=== PATIENT | male | born 1960 | race Caucasian/White ===

== ENCOUNTER 2020-03-07 19:20 | Emergency (ER) | payer OTHER ==
[~2020-03-07 19:20] MED LIST: ADVAIR 500-501 EACH INH; AMLODIPINE BES2.5 MG PO; ATROVENT HFA12.9 GM INH; AUGMENTIN 875-1 EACH PO; AZELASTINE137 MCG/0. INH; AZELASTINE205.5 MCG/; CEFDINIR300 MG PO; FLUTICASONE-SA1 EAC5 INH; INCRUSE ELLI62.5 MCG INH; LOPRESSOR25 MG PO; MONTELUKAST SOD10 MG PO; MUCINEX1200 MG PO; NASONEX17 GM; NEURONTIN100 M1 PO; NORCO 5-325 TA1 EACH PO; NORVASC2.5 MG PO; ONDANSETRON HCL8 MG PO; PEPCID COMPLET1 EACH PO; PREDNISONE 10MG10 MG PO; PREDNISONE 20MG20 MG PO; PREDNISONE20 MG PO; PROAIR HFA8.5 GM INH; SINGULAIR10 MG PO; SPIRIVA 18MCG18 MCG INH; SPIRIVA18 MCG INH; TENOFOVIR DISO300 MG PO; TESSALON PERLE100 M1 PO; VENTOLIN (2.5 MG/0.5 INH; VENTOLIN (2.5 MG/3 M INH; VENTOLIN HFA IN18 GM INH; VIREAD300 MG PO; ZPAK PO
[2020-03-07 19:45] LABS: BASOPHIL 0.7 % (0-2); HCT 49.4 % (42.0-52.0); HGB 16.9 g/dl (13.2-18.0); LYMPHOCYTE 13.6 % (15-48); MCH 33.1 pg (25.0-31.0); MCHC 34.2 g/dL (32.0-36.0); MCV 96.7 fL (78.0-100.0); MONOCYTE 9.6 % (0-12); MPV 9.6 fL (6.0-9.5); NEUTROPHIL 73.3 % (41-80); NRBC 0; PLT 153 K/uL (150-400); RBC 5.11 M/uL (4.70-6.00); RDW 12.4 % (11.5-14.0); WBC 10.3 K/uL (4.0-10.5)
[2020-03-07 19:48] LABS: INR 1.15 (0.9-1.2); PTT 29.2 SECONDS (22.2-34.7)
[2020-03-07 20:02] LABS: ALBUMIN 4.2 g/dL (3.4-5.0); BILIRUBIN - TOTAL 0.6 mg/dL (0.2-1.0); BUN/CREAT RATIO (CALC) 10.8 RATIO; CREATININE 1.11 mg/dL (0.67-1.17); POTASSIUM 3.8 mmol/L (3.5-5.1); TOTAL PROTEIN 8.2 g/dL (6.4-8.2)
[2020-03-08] MEDS ORDERED: CARAFATE1 GM PO (01:27)
[2020-04-20] MEDS ORDERED: VENTOLIN (2.5 MG/3 M INH (15:37)
[2020-04-27] MEDS ORDERED: NORCO 5-325 TA1 EACH PO (11:09)
[2020-04-27] MEDS ORDERED: ONDANSETRON ODT8 MG PO (11:09)
== END 2020-03-08 01:40 | disposition home or self-care (01) ==
LOC: FER 19:20
PROVIDERS: Emergency Medicine Emergency Medical Services
DX: R07.89 Other chest pain (principal); I16.0 Hypertensive urgency; I10 Essential (primary) hypertension; I44.0 Atrioventricular block, first degree; J44.9 Chronic obstructive pulmonary disease, unspecified; Z88.1 Allergy status to other antibiotic agents; Z88.2 Allergy status to sulfonamides; Z86.19 Personal history of other infectious and parasitic diseases; Z79.899 Other long term (current) drug therapy
CPT/HCPCS: 36415; 71045; 80053; 84484; 85025; 85610; 85730; 93005

== ENCOUNTER 2020-04-01 17:27 | Emergency (ER) | payer OTHER ==
[~2020-04-01 17:27] MED LIST changes: +CARAFATE1 GM PO
[2020-04-01 20:17] LABS: BASOPHIL 0.6 % (0-2); EOSINOPHIL 2.2 % (0-5); HCT 48.6 % (42.0-52.0); HGB 16.5 g/dl (13.2-18.0); LYMPHOCYTE 12.2 % (15-48); MCH 32.6 pg (25.0-31.0); MONOCYTE 9.2 % (0-12); NEUTROPHIL 74.8 % (41-80); NRBC 0; PLT 169 K/uL (150-400); RBC 5.06 M/uL (4.70-6.00); RDW 12.5 % (11.5-14.0); WBC 11.1 K/uL (4.0-10.5)
[2020-04-01 20:34] LABS: BILIRUBIN - TOTAL 0.5 mg/dL (0.2-1.0); BUN/CREAT RATIO (CALC) 11.1 RATIO; CREATININE 0.99 mg/dL (0.67-1.17); GLOBULIN (CALCULATION) 3.9 g/dL; POTASSIUM 3.8 mmol/L (3.5-5.1); TOTAL PROTEIN 7.9 g/dL (6.4-8.2)
[2020-04-01] MEDS ORDERED: CEFDINIR300 MG PO (22:52)
[2020-04-01] MEDS ORDERED: ZPAK PO (22:52)
[2020-04-20] MEDS ORDERED: VENTOLIN (2.5 MG/3 M INH (15:37)
[2020-04-27] MEDS ORDERED: NORCO 5-325 TA1 EACH PO (11:09)
[2020-04-27] MEDS ORDERED: ONDANSETRON ODT8 MG PO (11:09)
== END 2020-04-01 23:20 | disposition home or self-care (01) ==
LOC: FER 17:27
PROVIDERS: Emergency Medicine Emergency Medical Services
DX: J18.9 Pneumonia, unspecified organism (principal); J45.909 Unspecified asthma, uncomplicated; I10 Essential (primary) hypertension; Z90.2 Acquired absence of lung [part of]; Z86.19 Personal history of other infectious and parasitic diseases; Z88.6 Allergy status to analgesic agent; Z88.1 Allergy status to other antibiotic agents; Z88.2 Allergy status to sulfonamides; Z20.822 Contact with and (suspected) exposure to COVID-19
CPT/HCPCS: 36415; 71046; 80053; 85025; 85379; 87070; 87077; 87186; 87205; J2185; U0002

== ENCOUNTER → 2020-04-27 | Day surgery (SDC) | payer OTHER ==
[~2020-04-27] MED LIST changes: +IMITREX100 MG PO; +ONDANSETRON ODT8 MG PO; +PEPCID AC20 MG PO
[2020-04-27 09:41] LABS: HCT 48.8 % (42.0-52.0); HGB 16.6 g/dl (13.2-18.0); MCH 32.4 pg (25.0-31.0); MCV 95.3 fL (78.0-100.0); RBC 5.12 M/uL (4.70-6.00); RDW 12.6 % (11.5-14.0)
[2020-04-27 09:50] LABS: GLOBULIN (CALCULATION) 3.6 g/dL; TOTAL PROTEIN 7.6 g/dL (6.4-8.2)
== END | disposition home or self-care (01) ==
LOC: FAS 08:30
PROVIDERS: Surgery
DX: K42.9 Umbilical hernia without obstruction or gangrene (principal); G47.30 Sleep apnea, unspecified; J44.9 Chronic obstructive pulmonary disease, unspecified; I10 Essential (primary) hypertension; Z20.822 Contact with and (suspected) exposure to COVID-19; Z90.49 Acquired absence of other specified parts of digestive tract; Z98.890 Other specified postprocedural states; Z88.6 Allergy status to analgesic agent; Z88.1 Allergy status to other antibiotic agents; Z88.2 Allergy status to sulfonamides; Z88.8 Allergy status to other drugs, medicaments and biological substances; Z79.899 Other long term (current) drug therapy; K21.9 Gastro-esophageal reflux disease without esophagitis; Z99.81 Dependence on supplemental oxygen
CPT/HCPCS: 36415; 80053; C1781; J0690; J1100; J1170; J2250; J2405; J2704; J3010; J7120

== ENCOUNTER 2020-04-28 23:25 | Inpatient (IN) | payer OTHER ==
[~2020-04-28 23:25] MED LIST changes: -IMITREX100 MG PO; -PEPCID AC20 MG PO
[2020-04-28 23:52] LABS: BASOPHIL 0.2 % (0-2); EOSINOPHIL 0 % (0-5); HCT 52.1 % (42.0-52.0); HGB 17.4 g/dl (13.2-18.0); LYMPHOCYTE 5.5 % (15-48); MCHC 33.4 g/dL (32.0-36.0); MCV 95.9 fL (78.0-100.0); MONOCYTE 12.7 % (0-12); MPV 10.1 fL (6.0-9.5); NEUTROPHIL 81.2 % (41-80); NRBC 0; PLT 197 K/uL (150-400); RBC 5.43 M/uL (4.70-6.00); RDW 12.9 % (11.5-14.0)
[2020-04-28 23:54] LABS: WBC 16.5 K/uL (4.0-10.5)
[2020-04-29 00:02] LABS: ALBUMIN 4.2 g/dL (3.4-5.0); BUN/CREAT RATIO (CALC) 19.8 RATIO; CREATININE 1.11 mg/dL (0.67-1.17); TOTAL PROTEIN 8.2 g/dL (6.4-8.2)
[2020-04-29 01:59] LABS: BILIRUBIN NEGATIVE (NEGATIVE); BLOOD TRACE-INTACT Ery/uL (NEGATIVE); CLARITY CLEAR (CLEAR); COLOR YELLOW (YELLOW); GLUCOSE (U) NORMAL (NORMAL); LEUKOCYTES NEGATIVE Leu/uL (NEGATIVE); NITRITE NEGATIVE (NEGATIVE); PROTEIN NEGATIVE (NEGATIVE); UROBILINOGEN 0.2 mg/dL (0.2-1.0); pH 6.5 (5.0-9.0)
[2020-04-29] MEDS ORDERED: PEPCID AC20 MG PO (02:11)
[2020-04-29 02:17] LABS: AMORPHOUS URATES CRYSTALS TRACE; SQUAMOUS EPITHELIAL CELLS RARE; URINARY WBC RARE
[2020-04-29] MEDS ORDERED: IMITREX100 MG PO (02:17)
[2020-04-29 06:24] LABS: BASOPHIL 0.3 % (0-2); EOSINOPHIL 0.1 % (0-5); HCT 47.1 % (42.0-52.0); HGB 15.9 g/dl (13.2-18.0); LYMPHOCYTE 9.5 % (15-48); MCH 32.9 pg (25.0-31.0); MCHC 33.8 g/dL (32.0-36.0); MCV 97.3 fL (78.0-100.0); MONOCYTE 13.7 % (0-12); MPV 10.2 fL (6.0-9.5); NRBC 0; PLT 150 K/uL (150-400); RBC 4.84 M/uL (4.70-6.00); RDW 12.8 % (11.5-14.0); WBC 11.5 K/uL (4.0-10.5)
[2020-04-29 06:48] LABS: BUN/CREAT RATIO (CALC) 18.7 RATIO; CREATININE 1.07 mg/dL (0.67-1.17)
--- NOTE | 2020-04-29 17:08 | NUR ---
PT TOOK HOME DOSE OF ANTIVIRAL MEDICATIONS AFTER CLARIFICATION WITH MD TO GO AHEAD AND GIVE WITHOUT PHARMACY VERIFICATION AT 1650. MD PUT NOTE IN TO DO SO AND HAVE VERIFIED IN AM. MEDICATION IN DRAWER
[2020-04-30 06:46] LABS: BASOPHIL 0.4 % (0-2); EOSINOPHIL 0.4 % (0-5); HCT 45.1 % (42.0-52.0); HGB 15.2 g/dl (13.2-18.0); LYMPHOCYTE 14.1 % (15-48); MCH 32.9 pg (25.0-31.0); MCHC 33.7 g/dL (32.0-36.0); MCV 97.6 fL (78.0-100.0); MONOCYTE 17.9 % (0-12); MPV 9.9 fL (6.0-9.5); NEUTROPHIL 66.7 % (41-80); NRBC 0; PLT 144 K/uL (150-400); RBC 4.62 M/uL (4.70-6.00); RDW 12.7 % (11.5-14.0); WBC 9.6 K/uL (4.0-10.5)
[2020-04-30 06:49] LABS: BUN/CREAT RATIO (CALC) 16.2 RATIO; CREATININE 1.05 mg/dL (0.67-1.17); MAGNESIUM 1.9 mg/dL (1.8-2.4); POTASSIUM 3.9 mmol/L (3.5-5.1)
[2020-04-30 07:48] LABS: TOTAL CELL COUNT 100
[2020-04-30 07:54] LABS: LYMPHOCYTE(M) 11 % (15-48); MONOCYTE(M) 19 % (0-12); NEUTROPHILS(M) 70 % (41-80); PLATELET ESTIMATE DECREASED; PLATELET MORPHOLOGY NORMAL
[2020-05-01 06:16] LABS: BASOPHIL 0.3 % (0-2); EOSINOPHIL 0.5 % (0-5); HCT 44.8 % (42.0-52.0); HGB 15.2 g/dl (13.2-18.0); LYMPHOCYTE 10.1 % (15-48); MCH 32.4 pg (25.0-31.0); MCHC 33.9 g/dL (32.0-36.0); MCV 95.5 fL (78.0-100.0); MONOCYTE 15.9 % (0-12); MPV 9.9 fL (6.0-9.5); NEUTROPHIL 72.5 % (41-80); NRBC 0; PLT 137 K/uL (150-400); RBC 4.69 M/uL (4.70-6.00); RDW 12.3 % (11.5-14.0); WBC 9.5 K/uL (4.0-10.5)
[2020-05-01 06:44] LABS: BILIRUBIN - TOTAL 2.2 mg/dL (0.2-1.0); CREATININE 0.85 mg/dL (0.67-1.17); GLOBULIN (CALCULATION) 3.4 g/dL; MAGNESIUM 1.9 mg/dL (1.8-2.4); POTASSIUM 3.7 mmol/L (3.5-5.1); TOTAL PROTEIN 6.4 g/dL (6.4-8.2)
[2020-05-02 06:53] LABS: HCT 44.7 % (42.0-52.0); HGB 15.5 g/dl (13.2-18.0); MCH 32.8 pg (25.0-31.0); MCHC 34.7 g/dL (32.0-36.0); MCV 94.7 fL (78.0-100.0); MPV 10.3 fL (6.0-9.5); RBC 4.72 M/uL (4.70-6.00); RDW 12.1 % (11.5-14.0); WBC 10.2 K/uL (4.0-10.5)
[2020-05-02 07:05] LABS: BUN/CREAT RATIO (CALC) 21.8 RATIO; CREATININE 0.78 mg/dL (0.67-1.17); POTASSIUM 3.5 mmol/L (3.5-5.1)
--- NOTE | 2020-05-02 17:43 | NUR ---
MET WITH PT. HE RESIDES WITH HIS 87 YEAR OLD MOTHER. HE STATES THAT SHE IS ACTIVE AND CAN HELP HIM. HE ALSO HAS THREE CHILDREN WHO CAN ALSO ASSIST HIM. PT. WORKS ON A FARM. HE IS . HE DOES HAVE A CPAP, BUT NO OTHER EQUIPMENT. PT. DOESN'T THINK HE WILL NEED HH, BUT AT THIS TIME, HE IS UNSURE DEPENDING ON WHAT DR. DOWLING ORDERS.
--- NOTE | 2020-05-05 05:19 | NUR ---
PT CALLED OUT TO SPEAK WITH HIS NURSE ABOUT HOW HE WAS FEELING. I ENTERED PT ROOM TO FIND HIM SITTING IN THE CHAIR. HE INFORMED ME THAT HE THOUGHT THE WAS HAVING A RXN TO A MEDICATION HE HAD TAKEN YESTERDAY MORNING AND THAT HIS THROAT FELT LIKE IT WAS CLOSING UP. I LISTENED TO THE PT TO FIND EXPIRATORY WHEEZING THROUGHOUT HIS LEFT LOBE AND AUDIBLE TRACHEAL WHEEZING. PTS O2 SATURATION WAS 94 INITIALLY AND INCREASED TO 97 WITH SOME DEEP BREATHING. SPOKE WITH MARCELINO PADRON FOR FURTHER EVALUATION AND CALLED RT FOR A BREATHING TREATMENT. DURING TREATMENT PT STATED THAT THE PRESSURE WAS GOING AWAY AND HE BEGAN BELCHING AND COUGHING.
[2020-05-07 05:58] LABS: HCT 39.3 % (42.0-52.0); HGB 14.1 g/dl (13.2-18.0); MCH 33.3 pg (25.0-31.0); MCHC 35.9 g/dL (32.0-36.0); MCV 92.9 fL (78.0-100.0); RBC 4.23 M/uL (4.70-6.00); RDW 12.4 % (11.5-14.0); WBC 7.2 K/uL (4.0-10.5)
[2020-05-07 06:22] LABS: BUN/CREAT RATIO (CALC) 8.8 RATIO; CREATININE 0.8 mg/dL (0.67-1.17); POTASSIUM 2.8 mmol/L (3.5-5.1)
--- NOTE | 2020-05-07 11:00 | NUR ---
I have reviewed the assessment documented by the Student Nurse and agree with the findings.
[2020-05-08 05:33] LABS: HCT 39.1 % (42.0-52.0); MCH 33.7 pg (25.0-31.0); MCHC 35.8 g/dL (32.0-36.0); MCV 94.2 fL (78.0-100.0); MPV 9.7 fL (6.0-9.5); RBC 4.15 M/uL (4.70-6.00); RDW 12.8 % (11.5-14.0); WBC 7.1 K/uL (4.0-10.5)
[2020-05-08 05:51] LABS: BUN/CREAT RATIO (CALC) 8.3 RATIO; CREATININE 0.84 mg/dL (0.67-1.17)
== END 2020-05-08 14:38 | disposition home or self-care (01) | DRG 337 ==
LOC: FER 23:25 → FMS 04-29 01:28
PROVIDERS: Emergency Medicine; Hospitalist; Nurse Practitioner; Surgery; ADMIT Internal Medicine
PROC: 0DNU4ZZ Release Omentum, Percutaneous Endoscopic Approach (ICD-10-PCS; 2020-05-01)
PROC: 0DN84ZZ Release Small Intestine, Percutaneous Endoscopic Approach (ICD-10-PCS; principal; 2020-05-01 11:30)
DX: K56.50 Intestinal adhesions [bands], unspecified as to partial versus complete obstruction (principal); G47.33 Obstructive sleep apnea (adult) (pediatric); E87.6 Hypokalemia; B19.20 Unspecified viral hepatitis C without hepatic coma; Z20.822 Contact with and (suspected) exposure to COVID-19; J44.9 Chronic obstructive pulmonary disease, unspecified; I10 Essential (primary) hypertension; R14.0 Abdominal distension (gaseous); K21.9 Gastro-esophageal reflux disease without esophagitis; Z88.2 Allergy status to sulfonamides; Z88.1 Allergy status to other antibiotic agents; Z88.8 Allergy status to other drugs, medicaments and biological substances; Z90.49 Acquired absence of other specified parts of digestive tract; Z98.890 Other specified postprocedural states; Z98.41 Cataract extraction status, right eye; Z98.42 Cataract extraction status, left eye; Z90.2 Acquired absence of lung [part of]; Z99.81 Dependence on supplemental oxygen; Z86.19 Personal history of other infectious and parasitic diseases; Z79.4 Long term (current) use of insulin; Z79.51 Long term (current) use of inhaled steroids; Z79.899 Other long term (current) drug therapy
CPT/HCPCS: 36415; 71045; 74019; 80048; 80053; 81001; 83605; 83690; 83735; 83880; 85025; 87070; 87077; 87186; 87205; 94640; 94667; 94668; C1781; C9113; J0690; J0692; J0780; J1100; J1170; J2250; J2270; J2405; J2550; J2704; J3010; J3480; J7030; J7120; Q9967; U0002

== ENCOUNTER 2021-06-23 18:23 | Emergency (ER) | payer OTHER ==
[~2021-06-23 18:23] MED LIST changes: +IMITREX100 MG PO; +PEPCID AC20 MG PO
[2021-06-23 19:21] LABS: BASOPHIL 0.2 % (0-2); EOSINOPHIL 0.3 % (0-5); HGB 14.8 g/dl (13.2-18.0); LYMPHOCYTE 3.5 % (15-48); MCH 32.4 pg (25.0-31.0); MCHC 34.4 g/dL (32.0-36.0); MCV 94.1 fL (78.0-100.0); MPV 9.7 fL (6.0-9.5); NEUTROPHIL 87.9 % (41-80); NRBC 0; PLT 213 K/uL (150-400); RBC 4.57 M/uL (4.70-6.00); RDW 12.5 % (11.5-14.0); WBC 21.5 K/uL (4.0-10.5)
[2021-06-23 19:32] LABS: MONOCYTE 7.4 % (0-12)
[2021-06-23 19:33] LABS: BUN/CREAT RATIO (CALC) 13.2 RATIO; CREATININE 0.91 mg/dL (0.67-1.17); POTASSIUM 3.6 mmol/L (3.5-5.1)
[2021-06-23 20:06] LABS: CORONAVIRUS 2019 SARS-COV-2 NEGATIVE (NEGATIVE); INFLUENZA A NAA NEGATIVE (NEGATIVE)
[2021-06-23] MEDS ORDERED: AZITHROMYCIN250 MG PO (21:00)
[2021-06-23] MEDS ORDERED: PREDNISONE 20MG20 MG PO (21:00)
[2021-06-23] MEDS ORDERED: CEFDINIR300 MG PO (21:00)
== END 2021-06-23 21:43 | disposition home or self-care (01) ==
LOC: FER 18:23
PROVIDERS: Internal Medicine
DX: J44.0 Chronic obstructive pulmonary disease with (acute) lower respiratory infection (principal); J18.9 Pneumonia, unspecified organism; J45.901 Unspecified asthma with (acute) exacerbation; Z88.2 Allergy status to sulfonamides; Z88.6 Allergy status to analgesic agent; Z88.1 Allergy status to other antibiotic agents; Z20.822 Contact with and (suspected) exposure to COVID-19
CPT/HCPCS: 36415; 71045; 80048; 83880; 84145; 84484; 85025; 93005; 94640; 94664; 96372; J0696; J2930; U0002

== ENCOUNTER 2021-09-21 19:36 | Emergency (ER) | payer OTHER ==
[~2021-09-21 19:36] MED LIST changes: +AZITHROMYCIN250 MG PO
[2021-09-21 20:53] LABS: BASOPHIL 0.6 % (0-2); EOSINOPHIL 0.6 % (0-5); HCT 45.4 % (42.0-52.0); HGB 16.2 g/dl (13.2-18.0); LYMPHOCYTE 15.7 % (15-48); MCH 33.8 pg (25.0-31.0); MCHC 35.7 g/dL (32.0-36.0); MCV 94.6 fL (78.0-100.0); MONOCYTE 8.9 % (0-12); MPV 9.7 fL (6.0-9.5); NEUTROPHIL 72.8 % (41-80); NRBC 0; PLT 161 K/uL (150-400); RDW 12.8 % (11.5-14.0); WBC 9.4 K/uL (4.0-10.5)
[2021-09-21 22:32] LABS: CORONAVIRUS 2019 SARS-COV-2 NEGATIVE (NEGATIVE); INFLUENZA A NAA NEGATIVE (NEGATIVE)
[2021-09-21 22:55] LABS: ALBUMIN 4.4 g/dL (3.4-5.0); BILIRUBIN - TOTAL 0.7 mg/dL (0.2-1.0); CREATININE 1.07 mg/dL (0.67-1.17); GLOBULIN (CALCULATION) 3.9 g/dL; POTASSIUM 4.1 mmol/L (3.5-5.1); TOTAL PROTEIN 8.3 g/dL (6.4-8.2)
[2021-09-22] MEDS ORDERED: AMOX TR-K CLV1 EAC4 PO (01:13)
[2021-09-22] MEDS ORDERED: ZPAK PO (01:13)
== END 2021-09-22 02:41 | disposition home or self-care (01) ==
LOC: FER 19:36
PROVIDERS: Emergency Medicine
DX: J18.9 Pneumonia, unspecified organism (principal); J45.909 Unspecified asthma, uncomplicated; I10 Essential (primary) hypertension; Z20.822 Contact with and (suspected) exposure to COVID-19; Z79.899 Other long term (current) drug therapy; Z88.1 Allergy status to other antibiotic agents; Z88.2 Allergy status to sulfonamides; Z88.6 Allergy status to analgesic agent
CPT/HCPCS: 36415; 71045; 80053; 84484; 85025; 93005; 94640; 94664; J0692; J2930; U0002